=== PATIENT | female | born 1980 | race Caucasian/White ===

== ENCOUNTER 2022-07-30 10:49 | Emergency (ER) | payer BC, SELFPAY ==
[2022-07-30 10:57] VITALS: BP 117/77; PULSE 104; RESP 18; TEMP 37.3; O2SAT 96
--- NOTE | 2022-07-30 11:15 | DI.CT_ITS ---
Exam(s) CT ABDOMEN PELVIS W EXAM: CT ABDOMEN PELVIS W CLINICAL HISTORY: RLQ abd Pain. TECHNIQUE: Imaging Protocol: Axial computed tomography images with coronal and sagittal reformatted images were created and reviewed CONTRAST MATERIAL: Intravenous: Omnipaque 350 Contrast volume:100 ml Oral: yes / no COMPARISON: No exams were available for comparison FINDINGS: ABDOMEN: Lung Bases: Normal where visualized. Liver: Mild fatty infiltration.. No measurable mass. Gallbladder and biliary tract: Cholelithiasis. No gallbladder wall thickening or biliary dilatation. Pancreas: Normal density, no abnormal calcifications or inflammatory process. Spleen: Normal. Kidneys: Normal size, contour and axis. No radiodense stones or obstructive uropathy. No suspicious m asses seen. Adrenal glands: No masses seen. Abdominal Aorta: Abdominal portion non-dilated. Soft tissues: Unremarkable. PELVIS: Bladder: Nearly empty. No gross wall thickening. No calculi.No focal mass. Bowel: Mild descending and sigmoid diverticulosis. Moderate quantity of stool. No obstruction. No bowel wall thickening. Appendix normal. Peritoneal cavity: No ascites, collection or mesenteric inflammatory response. Bones: Within normal limits for age. Reproductive organs: Within normal limits. Lymph nodes: Unremarkable. Impression: No acute abnormality. RADIATION DOSE DELIVERED: 1,183.33mGy.cm Total DLP DATA REPOSITORY: All CT scans at this facility are submitted to the National Radiology Data Registry (NRDR) Dose Index Registry (DIR) with the [employer] (ACR). RADIATION OPTIMIZATION: All CT scans at this facility use at least one of these dose optimization te chniques: automated exposure control; mA and/or kV adjustment per patient size (includes targeted exa ms where dose is matched to clinical indication); or iterative reconstruction.
--- NOTE | 2022-07-30 11:21 | ED.GENADUL_ITS ---
Discharge Plan Disposition Patient Disposition: Home Condition: Stable Discharge Details Clinical Impression: UTI (urinary tract infection), Abdominal pain Primary Care Provider: None,None ED Provider: Candace Garza Home Meds and New Rx's Prescriptions: New cephalexin 500 mg tablet 500 mg PO BID 7 Days Qty: 14 0RF Discharge Instructions Instructions: Urinary Tract Infection in Women (ED), Abdominal Pain (ED) Additional Instructions: You do have a urinary tract infection. Please take the Pyridium as directed it will turn your urine bright orange and may stain your clothes. Take the antibiotic twice daily as directed. Take it with yogurt or probiotic. Please take Tylenol or Ibuprofen with food every 4-6 hours as needed for pain and swelling. Follow up with primary care provider in 3-5 days. Return to ED sooner if any worsening or concerns. Increase oral fluids. Stand Alone Forms: Work Release Discharge Data Discharge Date/Time-TO BE ENTERED AT DEPARTURE: 07/30/22 13:28 Medical Decision Making 42-year-old female presents to the ER from urgent care with right lower quadrant abdominal pain x1 week. Subjective fever yesterday, slight tachycardia. She reports nausea no vomiting no diarrhea. No past medical history or surgical history. CBC shows 10.91 white blood cell count, absolute neutrophils 8.19, CMP normal sodium potassium, glucose 130, AST 60 ALT 65, lipase 28 which is normal, urinalysis shows small blood, positive nitrites small leukocytes 10-20 RBCs and 10-20 WBCs. Culture is pending at this time. CT within normal limits, nothing acute. No evidence for kidney stones appendicitis or other. I do suspect urinary tract infection we will treat her with Pyridium and cephalexin. Discussed results with her she verbalized understanding discussed home care strict return instructions. This text was generated using [employer] system, please disregard any oddities of phrase or misspellings. Imaging Data Radiologic Study: Imaging: CT Scan Radiologist's impression: COMPARISON: No exams were available for comparison FINDINGS: ABDOMEN: Lung Bases: Normal where visualized. Liver: Mild fatty infiltration.. No measurable mass. Gallbladder and biliary tract: Cholelithiasis. No gallbladder wall thickening or biliary dilatation. Pancreas: Normal density, no abnormal calcifications or inflammatory process. Spleen: Normal. Kidneys: Normal size, contour and axis. No radiodense stones or obstructive uropathy. No suspicious masses seen. Adrenal glands: No masses seen. Abdominal Aorta: Abdominal portion non-dilated. Soft tissues: Unremarkable. PELVIS: Bladder: Nearly empty. No gross wall thickening. No calculi.No focal mass. Bowel: Mild descending and sigmoid diverticulosis. Moderate quantity of stool. No obstruction. No bowel wall thickening. Appendix normal. Peritoneal cavity: No ascites, collection or mesenteric inflammatory response. Bones: Within normal limits for age. Reproductive organs: Within normal limits. Lymph nodes: Unremarkable. Impression: No acute abnormality. Lab Data Lab results reviewed: Yes I reviewed the patient's lab results. Labs: 07/30/22 12:20 Urine - Reflex from Ua Urine Culture - Pending Laboratory Tests Range/Units 07/30/22 07/30/22 07/30/22 11:15 11:15 12:20 WBC (4.4-10.8) 10^3/uL 10.91 H RBC (3.93-5.22) 10^6/uL 4.83 Hgb (11.2-15.7) g/dL 13.7 Hct (36.0-46.0) % 41.6 MCV (80-95) fL 86 MCH (27.0-33.0) pg 28.4 MCHC (32.0-36.0) % 32.9 RDW (11.7-14.6) % 12.8 Plt Count (130-400) 10^3/uL 352 MPV (8.0-11.0) fL 8.7 Immature Gran % 0.5 Neutrophils % 75.1 Lymphocytes % 15.0 Monocytes % 7.3 Eosinophils % 1.6 Basophils % 0.5 Nucleated RBC % (0.0-0.3) % 0.0 Absolute Neutrophils (1.2-6.7) 10^3/uL 8.19 H Absolute Lymphocytes (1.2-3.4) 10^3/uL 1.64 Absolute Monocytes (0.1-0.8) 10^3/uL 0.80 Absolute Eosinophils (0.0-0.7) 10^3/uL 0.17 Absolute Basophils (0.0-0.2) 10^3/uL 0.05 Sodium (136-145) mmol/L 136 Potassium (3.5-5.1) mmol/L 3.7 Chloride (98-107) mmol/L 101 Carbon Dioxide (21.0-32.0) mmol/L 26.7 Anion Gap (3-11) mmol/L 8.3 BUN (7-18) mg/dL 8 Creatinine (0.55-1.02) mg/dL 0.8 Est GFR (CKD-EPI 2020) (mL/min/1.73m2) 93.12 Glucose (74-106) mg/dL 130 H Calcium (8.5-10.1) mg/dL 8.9 Magnesium (1.8-2.4) mg/dL 2.0 Total Bilirubin (0.2-1.0) mg/dL 0.4 AST (15-37) U/L 60 H ALT (14-59) U/L 65 H Alkaline Phosphatase (46-116) U/L 100 Troponin I (<or=60) ng/L < 50 Total Protein (6.4-8.2) g/dL 8.8 H Albumin (3.4-5.0) g/dL 3.6 Lipase (16-77) U/L 28 Urine Color (Yellow) Yellow Urine Clarity (Clear) Sl Cloudy Urine pH (5-8) 7.0 Ur Specific [place] (1.005-1.025) 1.020 Urine Protein (Negative) mg/dL Negative Urine Ketones (Negative) mg/dL Negative Urine Blood (Negative) Small H Urine Nitrite (Negative) Positive H Urine Bilirubin (Negative) Negative Urine Urobilinogen (Up to 0.2) mg/dL 0.2 Ur Leukocyte Esterase (Negative) Small H Urine RBC (0-2) HPF 10-20 H Urine WBC (0-5) HPF 10-20 H Ur Epithelial Cells (Negative) HPF Few Urine Crystals (Negative) HPF Negative Urine Bacteria (Negative) HPF Many Urine Casts (Negative) LPF Negative Urine Mucus (Negative) Negative Ur Culture Indicated? Yes Urine Glucose (Negative) mg/dL Negative HPI General Mode of arrival: ambulatory . Date/Time Provider Initiated Documentation: 07/30/22 11:06 . Limitations to Documentation: no limitations . Information obtained by: patient, RN/MD, RN notes reviewed and old records reviewed . HPI Narrative: 42-year-old female presents to the ER from urgent care with right lower quadrant abdominal pain x1 week. Subjective fever yesterday, slight tachycardia. She reports nausea no vomiting no diarrhea. No past medical history or surgical history. Related Data Home Medications Medication Instructions Recorded Confirmed cephalexin 500 mg tablet 500 mg PO BID 7 days #14 tabs 07/30/22 Previous Rx's Medication Instructions Recorded cephalexin 500 mg tablet 500 mg PO BID 7 days #14 tabs 07/30/22 Allergies Allergy/AdvReac Type Severity Reaction Status Date / Time ibuprofen [From Motrin] Allergy Verified 07/30/22 10:11 General Stated Complaint: Abd Prob NIKKI: 3 Review of Systems All systems reviewed & are unremarkable except as noted in HPI and below Gastrointestinal Gastrointestinal: Reports abdominal pain, Denies diarrhea, Reports nausea and De nies vomiting PFSH All Active Problems (Updated 07/30/22 @ 13:07 by Candace Garza NP) UTI (urinary tract infection) (Acute) Abdominal pain (Acute) Social History Smoking/Tobacco Use Status: Never Smoking risk assessment performed?: Yes Alcohol Intake: current Alcohol Intake frequency: holidays/special occasions only Substance use type: does not use Do you feel safe at home: Yes Do you feel safe in your relationship?: Yes Exam Narrative Exam Narrative: Constitutional: Alert and oriented x3. Appears stated age. Normal body habitus. Head: Normocephalic, no trauma. Eyes: Pupils PERRL, Red reflex noted, EOM's intact. Eyelids symmetrical without lesions, discharge, or swelling. ENT: Bilateral TM's WNL, External ear normal to inspection, no mastoid TTP, swelling, or erythema, Nasal turbinates WNL, no nasal discharge. Normal dentition, Posterior pharynx WNL, no exudate. Chest: RRR, Normal S1, S2, distal pulses intact. Resp: Lungs clear to auscultation bilaterally, no wheezes, rales, or rhonchi. Abdomen: Soft, non-distended, Normoactive bowel sounds all 4 quads. Musculoskeletal: Normal gait, 5/5 strength to all four extremities. Skin: No suspicious rashes or lesions. Capillary refill less than 2 sec. Neurologic: Cranial nerves II-XII intact. Alert and oriented x 3. Motor: No deficits noted. Sensory: Intact bilaterally all 4 extremities. Reflexes: DTR's intact bilaterally.. Hematologic/Lymphatic: No ecchymosis, no lymphadenopathy. Course Vital Signs Vital signs: Vital Signs Temperature 37.3 C 07/30/22 10:57 Pulse 104 H 07/30/22 10:57 Respiratory Rate 18 07/30/22 10:57 Blood Pressure 117/77 07/30/22 10:57 Pulse Oximetry 96 07/30/22 10:57 Temperature 37.3 C 07/30/22 10:57 Temperature Source Oral 07/30/22 10:57 Pulse 104 H 07/30/22 10:57 Respiratory Rate 18 07/30/22 10:57 Blood Pressure 117/77 07/30/22 10:57 Blood Pressure Position Sitting 07/30/22 10:57 Pulse Oximetry 96 07/30/22 10:57 Oxygen Delivery Method Room Air 07/30/22 10:57 Oxygen Flow Rate 0 07/30/22 10:57 Pain Level 10 07/30/22 10:57
[2022-07-30 11:24] LABS: Abs Immature Grans 0.06 10^3/uL (0.0-0.06); Absolute Lymphocyte Count 1.64 10^3/uL (1.2-3.4); Basophils % 0.5; Eosinophils % 1.6; HCT 41.6 % (36.0-46.0); HGB 13.7 g/dL (11.2-15.7); Immature Grans % 0.5; MCH 28.4 pg (27.0-33.0); MCHC 32.9 % (32.0-36.0); MCV 86 fL (80-95); MPV 8.7 fL (8.0-11.0); Monocytes % 7.3; Neutrophils % 75.1; Platelet Count 352 10^3/uL (130-400); RBC 4.83 10^6/uL (3.93-5.22); RDW 12.8 % (11.7-14.6); RDW-SD 40.1 fL; WBC 10.91 10^3/uL (4.4-10.8)
[2022-07-30] MEDS: Normal Saline 1,000 ML 1000 ML IV (11:25)
[2022-07-30 11:34] LABS: Absolute Basophil Count 0.05 10^3/uL (0.0-0.2); Absolute Eosinophil Count 0.17 10^3/uL (0.0-0.7); Absolute Neutrophil Count 8.19 10^3/uL (1.2-6.7)
[2022-07-30 11:46] LABS: ALT 65 U/L (14-59); AST 60 U/L (15-37); Albumin 3.6 g/dL (3.4-5.0); Alkaline Phosphatase 100 U/L (46-116); Anion Gap 8.3 mmol/L (3-11); BUN 8 mg/dL (7-18); Bilirubin, Total 0.4 mg/dL (0.2-1.0); CO2 26.7 mmol/L (21.0-32.0); CREATININE 0.8 mg/dL (0.55-1.02); Calcium 8.9 mg/dL (8.5-10.1); Chloride 101 mmol/L (98-107); Estimated GFR 93.12 (mL/min/1.73m2); Glucose 130 mg/dL (74-106); Lipase 28 U/L (16-77); Potassium 3.7 mmol/L (3.5-5.1); Sodium 136 mmol/L (136-145); Total Protein 8.8 g/dL (6.4-8.2)
[2022-07-30 11:49] LABS: Troponin I < 50 ng/L (<or=60)
[2022-07-30] MEDS: Normal Saline - Diluent 50 ML VIAL IJ (12:14)
[2022-07-30] MEDS: Omnipaque 350 MG/ML 500 ML BTL-Imaging package IJ (12:14)
[2022-07-30 12:32] LABS: Bilirubin Negative (Negative); Blood Small (Negative); Clarity Sl Cloudy (Clear); Glucose Negative (Negative); Ketones Negative (Negative); Leukocyte Esterase Small (Negative); Nitrite Positive (Negative); Urobilinogen 0.2 mg/dL (Up to 0.2)
[2022-07-30 12:38] LABS: Bacteria Many HPF (Negative); C & S Indicated? Yes; Casts Negative LPF (Negative); Crystals Negative HPF (Negative); Epithelial Cells Few HPF (Negative); Mucus Negative (Negative)
[2022-07-30] MEDS: Phenazopyridine 100 MG TAB, 2 TABS/BTL PO (13:27)
[2022-07-30] MEDS: Phenazopyridine 100 MG TAB PO (13:27)
[2022-07-30] MEDS: Cephalexin 500 MG CAP PO (13:27)
== END 2022-07-30 13:28 | disposition home or self-care (01) ==
PROVIDERS: Emergency Provider Registered Nurse Emergency
DX: N39.0 Urinary tract infection, site not specified (principal)
CPT/HCPCS: 80053; 81025; 83690; 87077; 96360; 99285; 74177; 81003; 81015; 83735; 84484; 85025; 87086; 87186; 99284

== ENCOUNTER 2022-11-22 13:11 | Outpatient (REF) | payer BC, SELFPAY | END 2022-11-22 13:12 | disposition home or self-care (01) | LOC: LBN 13:11 | PROVIDERS: Visit Provider Physician Assistant | DX: N39.0 Urinary tract infection, site not specified (principal) | CPT/HCPCS: 87086 ==

== ENCOUNTER → 2023-11-01 00:20 | Outpatient (CLI) | payer BC, SELFPAY ==
--- OUTSIDE RECORDS SUMMARY | 2023-11-01 00:22 | XMS_ITS | Continuity of Care Document ---
Author Name Unknown Organization [facility] Address [address] [place] [address] Care Team Providers Care Cook Barbecue Name Role Phone Elizabeth Preston Primary Care Physician Encounter [facility] [id number] Date(s): 08/28/23 - 08/28/23 [facility] [address] [place] [address] Discharge Disposition: Home Allergies, Adverse Reactions, Alerts Substance Reaction Severity Status naproxen body numbness Mild Active Motrin Hives Mild Active Latex Hives Mild Active Assessment and Plan Future Appointments Future Scheduled Tests Laboratory* Anti DNA (Double Strand) [facility] 08/28/23 * Anti Nuclear Ab (SOFIA), IFA [facility] 08/28/23 * CBC w/ Diff 08/28/23 * Comprehensive Metabolic Panel 08/28/23 * Lipid Panel 08/28/23 * C-Reactive Protein 08/28/23 * TSH w/ Rflx to Free T4 08/28/23 * Sedimentation Rate (ESR) 08/28/23 * Vitamin D, 25-OH Total [facility] 08/28/23 * Hemoglobin A1c 08/28/23 Radiology* MG Mammo Screening Bilateral w/ Ra 08/28/23 Immunizations Given and Recorded Vaccine Date Status Refusal Reason influenza, unspecified formulation 04/24/22 Record ed influenza, unspecified formulation 04/07/21 Record ed SARS-COV-2 (COVID-19) vaccine, unspecifi 03/24/21 Recorded Problem List Condition Confirmation Course Effective Dates Status H ealth Status Informant Abdominal pain Confirmed Active Pap smear of cervix not needed Confirmed Active Family history of colon cancer in mother Confirmed Active Hyperlipidemia Confirmed Active Encounter to establish care with new doctor Confirmed Active Psoriatic arthritis Confirmed Active Social History Social History Type Response Tobacco Former tobacco user Tobacco Use:. 6 year(s). Sex Patient Care team information Care Team Personnel Name: Elizabeth Preston MD Position: Physician Member Role: Primary Care Physician Address: Address: [address] [place] [address] [place] [address]- Care Team Related Persons Name: WALE ROSE Address: Home [address] [place] [phone]
--- NOTE | 2023-11-01 08:05 | DI.MAMMO_ITS ---
Exam(s) MAMMO SCREENING EXAM: MAMMO SCREENING CLINICAL HISTORY: screening. TECHNIQUE: Bilateral full field digital CC and MLO mammographic images were obtained with 3D tomosyn thesis and utilizing computer aided detection (CAD). COMPARISON: Prior mammograms were apparently not able to be obtained from [place], [place]. FINDINGS: There are no significant focal findings in the left breast. In the right breast there is a slightly lobulated noncalcified well-defined nodule located 13 cm in f rom the nipple on both CC and MLO images towards the upper outer quadrant, this measuring approximate ly 9 x 8 mm. There are no malignant-appearing microcalcification groups in this region or elsewhere in either [address]. There is no significant architectural distortion nor skin thickening-retraction. IMPRESSION: 1. No radiographic evidence of malignancy in left breast. 2. Lobulated well-defined right breast nodule located 13 cm in from the nipple towards the upper oute r quadrant. Ultrasound recommended to determine if this is solid, cystic, or an intramammary lymph n ode. BI-RADS Category 0 - Assessment Incomplete: Need additional imaging evaluation Breast Density - Category B - Scattered areas of fibroglandular density Breast density Category C or D implies that the patient has dense breast tissue. Dense breast tissue can make it harder to find cancer on a mammogram. Dense breast tissue is also associated with an incr eased risk of breast cancer. This information about the result of the mammogram report was provided to the patient to raise their awareness. Use this report when you speak with the patient about their risks for breast cancer, which includes their family history. At that time, you may recommend additional screening tests (Ultrasoun d or MRI) as these tests may add significant information. A negative radiographic report should not delay biopsy if a dominant or clinically suspicious mass is present. Up to ten percent of cancers are not identified on mammography. A negative report may reinforce clinical impression. Adenosis and dense breasts may obscure an underlying neoplasm. False positive reports average 6 to 10%. Patient will receive a letter notifying them of these results.
== END ==
PROVIDERS: Visit Provider Nurse Practitioner Women's Health
DX: Z12.39 Encounter for other screening for malignant neoplasm of breast (principal); Z12.31 Encounter for screening mammogram for malignant neoplasm of breast; R92.8 Other abnormal and inconclusive findings on diagnostic imaging of breast
CPT/HCPCS: 77063; 77067

== ENCOUNTER 2023-11-28 02:47 | Outpatient (CLI) | payer BC, SELFPAY ==
[2023-11-28 10:02] LABS: Abs Immature Grans 0.05 10^3/uL (0.0-0.06); Absolute Basophil Count 0.07 10^3/uL (0.0-0.2); Absolute Eosinophil Count 0.32 10^3/uL (0.0-0.7); Absolute Lymphocyte Count 2.81 10^3/uL (1.2-3.4); Absolute Monocyte Count 0.77 10^3/uL (0.1-0.8); Absolute Neutrophil Count 7.94 10^3/uL (1.2-6.7); Basophils % 0.6 %; ESR 24 mm/hr (0-20); Eosinophils % 2.7 %; HCT 43.4 % (36.0-46.0); HGB 14.2 g/dL (11.2-15.7); Immature Grans % 0.4 %; Lymphocytes % 23.5 %; MCH 29.5 pg (27.0-33.0); MCHC 32.7 % (32.0-36.0); MCV 90 fL (80-95); MPV 8.9 fL (8.0-11.0); Monocytes % 6.4 %; Neutrophils % 66.4 %; Platelet Count 389 10^3/uL (130-400); RBC 4.82 10^6/uL (3.93-5.22); RDW 12.7 % (11.7-14.6); RDW-SD 41.9 fL; WBC 11.96 10^3/uL (4.4-10.8)
[2023-11-28 10:14] LABS: Hemoglobin A1C 5.7 % (<5.7)
[2023-11-28 11:26] LABS: ALT 29 U/L (14-59); AST 26 U/L (15-37); Albumin 3.7 g/dL (3.4-5.0); Alkaline Phosphatase 87 U/L (46-116); Anion Gap 7.8 mmol/L (3-11); BUN 8 mg/dL (7-18); Bilirubin, Total 0.31 mg/dL (0.2-1.0); CO2 28.2 mmol/L (21.0-32.0); CREATININE 0.8 mg/dL (0.55-1.02); Calcium 9.3 mg/dL (8.5-10.1); Calculated LDL 189 mg/dL (<100); Chloride 100 mmol/L (98-107); Cholesterol 275 mg/dL (<200); Estimated GFR 92.54 (mL/min/1.73m2); Glucose 92 mg/dL (74-106); HDL Cholesterol 49 mg/dL (40-60); Potassium 4.1 mmol/L (3.5-5.1); Sodium 136 mmol/L (136-145); Total Protein 8.3 g/dL (6.4-8.2); Triglyceride 187 mg/dL (<150); Vitamin D 25 Total 21.9 ng/mL (30-100)
[2023-11-28 12:26] LABS: C-Reactive Protein 1.17 mg/dL (<or=0.5)
[2023-11-29 12:47] LABS: dsDNA Ab, IgG <22.0 IU/mL (<27.0)
[2023-11-29 15:52] LABS: ANA Interpretation Negative (Negative)
== END 2023-11-28 02:48 | disposition home or self-care (01) ==
LOC: LBO 02:48
PROVIDERS: Visit Provider Family Medicine
DX: L40.50 Arthropathic psoriasis, unspecified (principal); R10.9 Unspecified abdominal pain; E78.5 Hyperlipidemia, unspecified
CPT/HCPCS: 36415; 80053; 80061; 82306; 85652; 83036; 84443; 85025; 86038; 86140; 86225

== ENCOUNTER 2024-03-25 10:44 | Emergency (ER) | payer BC, SELFPAY ==
[2024-03-25 10:48] VITALS: BP 141/89; PULSE 97; RESP 15; TEMP 36.6; O2SAT 98
--- NOTE | 2024-03-25 11:00 | DI.RAD_ITS ---
Exam(s) XR KNEE LT 4V AP,LAT,MYCHAL,PAT EXAM: XR KNEE LT 4V AP,LAT,MYCHAL,PAT CLINICAL HISTORY: Twisting inj, pain under patella and throughout. TECHNIQUE: 2D digital imaging was performed. COMPARISON: No exams were available for comparison FINDINGS: Four views No evidence of acute fracture but there is a prominent joint effusion indicating internal derangement . No joint space narrowing. On the merchant's sunrise view there is slight lateral deviation of the patella. There is no narrowing of the retropatellar space. IMPRESSION: No fractures but there is a prominent joint effusion signifying presence of an internal derangement. MRI recommended. DATA REPOSITORY: RADIATION DOSE DELIVERED:
--- NOTE | 2024-03-25 11:13 | ED.GENADUL_ITS ---
Discharge Plan Disposition Patient Disposition: Home Condition: Stable Discharge Details Clinical Impression: Injury of knee, left Primary Care Provider: Unknown,Unknown ED Provider: Arleth Bunn Home Meds and New Rx's Prescriptions: No Action No Known Home Meds Discharge Instructions Instructions: Knee Sprain (DC) Additional Instructions: You were seen in the emergency department today for evaluation of a knee injury, concerning for a ligamentous injury. In our department you have a full physical examination performed as well as x-ray imaging of the knee which revealed swelling inside the joint. You are placed in a hinged knee brace and given crutches, need to follow-up with orthopedics for repeat examination, outpatient imaging, and definitive management. Pain can be managed with Tylenol and ibuprofen, as well as ice and elevation for swelling. Please follow-up with your primary care provider with any additional concerns, thank you for allowing us to be part of your care. Referrals: Andi Mae MD [ [facility] STAFF PHYSICIAN] - 1 week HPI General Mode of arrival: ambulatory . Date/Time Provider Initiated Documentation: 03/25/24 10:46 . Limitations to Documentation: no limitations . Information obtained by: patient, family and old records reviewed . HPI Narrative: HPI: This is a 44-year-old female patient with a history notable for prior left knee surgery while in her teens, presenting for evaluation of a left knee injury. The patient was in her normal state of health 5 days ago, was cooking in the kitchen and socks on hardwood floor and sustained a twisting injury. She reports that initially she did not think that she had caused too much damage, was able to ambulate on the knee though she has noted some stiffness, muscle soreness, and feels unstable on her feet. Today she woke up and her pain was significantly worsened. States that she did not notice any inciting event, has taken ibuprofen for management of this pain. States that she feels this pain underneath her patella and wrapping around both sides of her knee to the back. She did not sustain any additional injury to her body, has not noted any numbness or weakness, and is otherwise in her normal state of health. Exam: Gen: Awake and alert, in no apparent distress HEENT: Non-icteric sclera Neck: Supple Lungs: No apparent respiratory distress, normal respiratory effort. CV: Appears well perfused Abdomen: Non-distended MSK: Moves 4 extremities without apparent limitation in ROM. The patient has no overlying skin changes to the left knee, moderate knee effusion palpable. The patient has tenderness to palpation just underneath the patella, along the medial and lateral joint lines, and in the popliteal fossa. She has no fluctuance or fullness of the popliteal fossa. The patient has tenderness and guarding with ligamentous testing, but no obvious laxity with Bandar's, nor valgus/varus stress. Symmetry is appreciated between the injured knee and the uninjured knee during these tests. The patient has no calf swelling or tenderness, CSM's intact distal to her injury. Skin: Visualized skin without rashes, cyanosis. Neuro: Normal Gait, no obvious focal deficits or facial asymmetry. Speaks in full, clear sentences. Psych: Appropriate for situation. MDM: This is a 44-year-old female patient presenting for evaluation of left knee injury sustained 5 days ago with sudden worsening of pain in the absence of repeat trauma. Differential includes but is not limited to sprain/strain, including ligamentous tear, muscular injury. I considered fracture dislocation, considered Bo's cyst though the patient's physical examination is less concerning for these etiologies. The patient reports that her pain feels more muscular, has a history of Lyme arthritis and states that this feels different. She has no redness, warmth, or significant swelling to increase my concern for septic arthritis, gout/pseudogout. No evidence for neurovascular derangement. We will obtain an x-ray to evaluate for any osseous abnormalities. ED Course: X-ray imaging was reviewed by myself, showing no evidence of osseous abnormality but does demonstrate joint effusion which is concerning for ligamentous injury/knee sprain. I did share this finding with the patient, placed her in a hinged knee brace, and provided her with crutches for mobility and comfort. She will need to follow-up with orthopedics as an outpatient for MRI and reassessment. At this time, the patient has had a full medical evaluation and is safe for discharge to home. They are hemodynamically stable, ambulatory, and tolerating PO. They are understanding of the follow-up plan and return precautions. They left our facility without incident. Arleth Bunn MD Related Data Home Medications ?Medication ?Instructions ?Recorded ?Confirmed Unknown [No Known Home Meds] 10/23/23 03/25/24 Allergies Allergy/AdvReac Type Severity Reaction Status Date / Time ibuprofen (From Motrin) Allergy Skin Rash Verified 03/25/24 10:54 General Stated Complaint: Orthopedic NIKKI: 4 Course Vital Signs Vital signs: Vital Signs Temperature 36.6 C 03/25/24 10:48 Pulse 97 H 03/25/24 10:48 Respiratory Rate 15 03/25/24 10:48 Blood Pressure 141/89 H 03/25/24 10:48 Pulse Oximetry 98 03/25/24 10:48 Temperature 36.6 C 03/25/24 10:48 Pulse 97 H 03/25/24 10:48 Respiratory Rate 15 03/25/24 10:48 Respiratory Effort Normal 03/25/24 10:53 Blood Pressure 141/89 H 03/25/24 10:48 Blood Pressure Position Sitting 03/25/24 10:48 Pulse Oximetry 98 03/25/24 10:48 Oxygen Delivery Method Room Air 03/25/24 10:48 Oxygen Flow Rate 0 03/25/24 10:48 Medical Decision Making Quality:SDOH Health Related Social Needs: No Data to Display PFSH All Active Problems (Updated 03/25/24 @ 12:44 by Arleth Bunn MD) Injury of knee, left (Acute) PRAVEEN (stress urinary incontinence, female) (Acute) Social History (Updated 10/23/23 @ 08:45 by Briana Herbert) Smoking/Tobacco Use Status: Never Smoking risk assessment performed?: Yes Alcohol Intake: current Alcohol Intake frequency: holidays/special occasions only Substance use type: does not use Household members: spouse and children Sexually active: Yes What is your relationship status?: Panel score (0-1 are the most socially isolated patients): 1 What type of physical activity do you participate in: regular exercise Do you feel safe at home: Yes Do you feel safe in your relationship?: Yes Female Reproductive History Menstrual Age of Menarche: 10 Duration of menses: 6-7 days control method: none and other (partner with vasectomy) History History 7 Para 2 Hx # Term Pregnancies Multiple births Hx # Pregnancies Ectopic pregnancies AB induced Hx Number of Living Children AB spontaneous 5 Past Pregnancies Del. Date GA/Weeks # Preg Succ Route Wgt Sex Labor Lgth Anesth esia Location [facility] 03/16/11 10/09/17 PAWSS Have you Been Recently Intoxicated or Drunk Within the Last 30 days?: No Have you Ever Experienced Previous Episodes of Alcohol Withdrawal?: No Have you ever Experienced Withdrawal Seizures?: No Have you ever Experienced Delirium Tremens(DT)s?: No Have you ever undergone Alcohol Rehabilitation Treatment (i.e, inpt ot outpatient treatment programs)?: No Have you ever Experienced Blackouts?: No Have you ever Combined Alcohol with other Downers within the last 90 days?: No Have you ever Combined Alcohol with any other Substance of Abuse during the last 90 days?: No Positive Blood Alcohol level on Presentation? [PCS.BAL]: No Evidence of Increased Autonomic Activity (i.e. HR>120, tremor, sweating, agitation, nausea)?: No Result: 0
[2024-03-25 12:03] VITALS: BP 117/69; PULSE 79; TEMP 37.4; O2SAT 98
== END 2024-03-25 13:06 | disposition home or self-care (01) ==
PROVIDERS: Emergency Provider Emergency Medicine
DX: S89.82XA Other specified injuries of left lower leg, initial encounter (principal); X50.1XXA Overexertion from prolonged static or awkward postures, initial encounter; Y93.89 Activity, other specified; Y92.010 Kitchen of single-family (private) house as the place of occurrence of the external cause
CPT/HCPCS: 99283; 73564; 99284

== ENCOUNTER 2024-12-09 11:26 | Outpatient (REF) | payer BC, SELFPAY ==
--- NOTE | 2024-12-09 11:30 | PAPFT_PTH ---
PATIENT: Dionna Adler LOC: [facility] U#:[id number] AGE/SX: 44/F ROOM: RE12/09/[address]: Tran Candelaria NP : 1980 BED: DIS: 12/09/2024 SPEC #: [id number] RECD: 12/09/24 12:56 STATUS: LUZ REJuan #: [id number] LISETH: 12/09/24 11:[address]: Bari EDDY,Tran DEPT: [facility] Cytology RECD BY: Oneida Ca ENTERED: 12/09/24 12:56 SP TYPE: PAPFT OTHR DR: LORI VERONICA Tissues: 1 - CX/ENDOCX FOR PAP SMEARS Procedures: PAP THIN PREP/[facility] Screening HPV DNA PROBE Comments: [id number] (HPV 16 & 18/45)
== END 2024-12-09 11:27 | disposition home or self-care (01) ==
LOC: LBN 11:26
PROVIDERS: PCP Family Medicine; Visit Provider Nurse Practitioner Women's Health
DX: Z12.4 Encounter for screening for malignant neoplasm of cervix (principal)
CPT/HCPCS: 88142; 87624